=== PATIENT | female | born 1940 | race Caucasian/White ===

== ENCOUNTER 2016-12-26 10:00 | Outpatient (RCR) | payer MEDICARE, BC ==
[2016-12-07 10:33] VITALS: BP 137/61; PULSE 85; TEMP 97.7
[2016-12-08 10:25] VITALS: BP 137/63; PULSE 94; TEMP 97.9
[2016-12-12 11:00] VITALS: BP 129/59; PULSE 102; TEMP 97.7
[2016-12-19 10:34] VITALS: BP 143/63; PULSE 91; TEMP 98.2
[~2016-12-26] VITALS: Ht 175.3 cm; Wt 75.7 kg
[~2016-12-26 10:00] MED LIST: ALEVE 220MG220 MG PO; ASPIRIN E.C. 8181 MG PO; GLUCOSAMINE & C1 CA1 PO; HCTZ 25MG TAB25 MG PO; INDERAL LA 80MG80 MG PO; MULTI VITAMINS1 TAB PO; NEXIUM 40MG40 MG PO; NORCO 325 MG-51 TAB PO; OSCAL 500 TAB500 MG PO; SYNTHROID0.088 MG/T PO
[2016-12-26 11:00] VITALS: BP 138/48; PULSE 55; TEMP 97.9
== END 2017-03-07 ==
LOC: EUO
DX: C56.1 Malignant neoplasm of right ovary (principal)
CPT/HCPCS: C1751; J1644

== ENCOUNTER 2017-06-06 09:28 | Outpatient (RCR) | payer MEDICARE, BC ==
[2017-06-06 10:24] VITALS: BP 111/65; PULSE 76; TEMP 98
== END 2017-09-04 | disposition home or self-care (01) ==
LOC: EUO
DX: Z45.2 Encounter for adjustment and management of vascular access device (principal); Z95.9 Presence of cardiac and vascular implant and graft, unspecified; Z85.43 Personal history of malignant neoplasm of ovary
CPT/HCPCS: J1644

== ENCOUNTER 2017-10-17 12:36 | Outpatient (CLI) | payer MEDICARE, BC ==
[~2017-10-17] VITALS: Ht 175.3 cm; Wt 72.0 kg
[2017-10-17 13:07] VITALS: BP 135/55; PULSE 79; TEMP 97.8
== END 2017-10-17 16:53 | disposition home or self-care (01) ==
LOC: EUO 12:36
DX: Z45.2 Encounter for adjustment and management of vascular access device (principal); C56.1 Malignant neoplasm of right ovary

== ENCOUNTER → 2017-12-13 | Outpatient (CLI) | payer MEDICARE, BC ==
[~2017-12-13] VITALS: Ht 175.3 cm; Wt 75.0 kg
[2017-12-13 12:39] VITALS: BP 162/63; PULSE 61; TEMP 97.6
== END ==
LOC: EUO 09-05 09:30 → EDSTATUS 09-05 09:30 → EUO 12-12 09:30
DX: C56.1 Malignant neoplasm of right ovary (principal)